=== PATIENT | female | born 1985 | race Caucasian/White ===

== ENCOUNTER → 2018-12-26 | Outpatient (CLI) | payer OTHER ==
[~2018-12-26] MED LIST: ADV100INH INH; BUSP5TA PO; FLON0.054; VITA500C3 PO; ZYRT10CA PO
[2018-12-26 14:17] LABS: HEPATITIS C VIRUS ABY INDEX < 0.0 INDEX (<0.8); HIV 1&2 SCREEN CENTAUR NEGATIVE (NEGATIVE)
[2018-12-26 14:43] LABS: CHLAMYDIA DNA AMPLIFICATION NEGATIVE (NEGATIVE); GC DNA AMPLIFICATION NEGATIVE (NEGATIVE)
== END ==
LOC: M SMT 09:27
PROVIDERS: ATTEND Obstetrics & Gynecology
DX: Z34.83 Encounter for supervision of other normal pregnancy, third trimester (principal); Z3A.00 Weeks of gestation of pregnancy not specified

== ENCOUNTER 2019-01-28 07:22 | Inpatient (IN) | payer OTHER ==
[2019-01-28] VITALS (7 sets, daily range): BP systolic 114–124; BP diastolic 64–74
[~2019-01-28] VITALS: Ht 149.9 cm; Wt 101.9 kg
[2019-01-28] MEDS ORDERED: MAPA500T2 PO (07:34)
[2019-01-28] MEDS ORDERED: PRENTAB9 PO (07:34)
[2019-01-28 08:49] LABS: HEMATOCRIT 37.6 % (36.0-47.0); HEMOGLOBIN 12.5 g/dl (12.0-15.5); MEAN CORPUSCULAR HEMOGLOBIN 26.8 pg (27.0-33.0); MEAN CORPUSCULAR HGB CONC 33.2 g/dl (32.0-36.5); MEAN CORPUSCULAR VOLUME 80.5 fl (80.0-96.0); PLATELET COUNT, AUTOMATED 205 10^3/uL (150-450); RED BLOOD COUNT 4.67 10^6/uL (4.00-5.40); WHITE BLOOD COUNT 9.8 10^3/uL (4.0-10.0)
[2019-01-28] MEDS: PRENATAL VITAMINS CHEWABLE TABLET PO SCH (09:00)
[2019-01-28] MEDS ORDERED: miSOPROStol 50 MCG 1/2 TAB (S0191) PO SCH (09:00)
[2019-01-28] MEDS ORDERED: LACTATED RINGER'S 1000 ML IV STA (10:30)
[2019-01-28] MEDS ORDERED: BICITRA 30ML SOLN UDC PO ONE (10:30)
[2019-01-28] MEDS ORDERED: OXYTOCIN INJ 10 UNITS/ML VIAL (J2590) As Ordered ONE (10:46)
[2019-01-28] MEDS ORDERED: BUPIVACAINE/DEXTROSE 0.75% 2 ML AMP As Ordered ONE (10:46)
[2019-01-28] MEDS ORDERED: ONDANSETRON 4MG/2ML VIAL (J2405) As Ordered ONE (10:47)
[2019-01-28] MEDS ORDERED: dexameTHASONE 4 MG/ML 1ML VIAL (J1100) As Ordered ONE (10:47)
[2019-01-28] MEDS ORDERED: NALOXONE INJ 0.4 MG/1 ML VIAL (J2310) As Ordered ONE (10:51)
[2019-01-28] MEDS ORDERED: MORPHINE PRES-FREE INJ 10 MG/10 ML VIAL (J2274) As Ordered ONE (10:51)
[2019-01-28] MEDS ORDERED: ONDANSETRON 4MG/2ML VIAL (J2405) IV PRN ×3 (11:15→12:45)
[2019-01-28] MEDS ORDERED: METOCLOPRAMIDE INJ 10MG/2ML VIAL (J2765) IV PRN ×2 (11:15→12:45)
[2019-01-28] MEDS ORDERED: diphenhydrAMINE INJ 50MG/ML VIAL (J1200) IV PRN (11:15)
[2019-01-28] MEDS ORDERED: NALOXONE INJ 0.4 MG/1 ML VIAL (J2310) IV PRN ×2 (11:15)
[2019-01-28] MEDS ORDERED: NALBUPHINE HCL 10 MG/ML AMP (J2300) IV PRN (11:15)
--- NOTE | 2019-01-28 11:26 | HPE ---
DATE OF ADMISSION: 01/28/2019 REASON FOR ADMISSION: Induction of labor. HISTORY OF PRESENT ILLNESS: Ms. Martinez is a 33-year-old 1 who presents at 40 weeks 2 days estimated gestational age for induction of labor. Her course has been unremarkable. She initiated care at the first trimester, transferred into our practice at 35 weeks. PAST MEDICAL HISTORY: History of asthma. Also, with past medical history of depression, anxiety. PAST SURGICAL HISTORY: None. PAST OBSTETRICAL HISTORY: She is a 1. MEDICATIONS: Includes vitamins, Claritin, and Advair. ALLERGIES: She has no known drug allergies. SOCIAL HISTORY: Denies any alcohol, tobacco or drug use during . PHYSICAL EXAMINATION: Vital signs: Stable. She has a category 1 heart tracing. General appearance: Well appearing, no acute distress. Lungs: Clear to auscultation bilaterally. Cardiovascular: Heart regular rate and rhythm. Abdomen: Gravid, nontender. Cervical exam: She is 1 cm dilated, 25% effaced, -3 station. LABORATORY: Her blood type is A+, antibody screen is negative. Rubella is immune. Hepatitis surface antigen is negative, HIV is negative, hepatitis C is nonreactive. Chlamydia and gonorrhea screens are negative. She had a normal one-hour Glucola. She is GBS negative. ASSESSMENT: 1. Ms. Martinez is a 33-year-old 1 at 40 weeks 2 days estimated gestational age by last menstrual period, confirmed by first trimester ultrasound, here for induction of labor. 2. Reassuring status. PLAN: 1. Admit to labor and delivery, CBC, RPR, type and screen. 2. I have discussed induction of labor to include medication as well as procedures performed in labor and delivery. She has also been verbally consented for emergency surgery, blood products, and anesthesia and desires to proceed. 3. Will initiate her induction of labor with 50 mcg of oral misoprostil. MTDD
[2019-01-28 12:04] LABS: CORD GAS ABE V 0.5; CORD GAS HCO3 V 26.9 MEQ/L; CORD GAS O2 SAT V 33.1 %; CORD GAS PCO2 V 49.9 mmHg; CORD GAS PH V 7.35 UNITS; CORD GAS PO2 V 16.4 mmHg; CORD GAS SBC V 23.2 MEQ/L; CORD GAS TCO2 V 28.5 MEQ/L
[2019-01-28 12:06] LABS: CORD GAS ABE A -1.1; CORD GAS HCO3 A 26.6 MEQ/L; CORD GAS O2 SAT A 29.4 %; CORD GAS PCO2 A 56.2 mmHg; CORD GAS PH A 7.293 UNITS; CORD GAS PO2 A 15.9 mmHg; CORD GAS SBC A 21.8 MEQ/L; CORD GAS TCO2 A 28.3 MEQ/L
[2019-01-28] MEDS ORDERED: MOM 30ML SUSPENSION UDC PO PRN (12:30)
[2019-01-28] MEDS ORDERED: PERCOCET 5MG/325MG TAB PO PRN (12:30)
[2019-01-28] MEDS ORDERED: OXYTOCIN 30 UNITS IN 0.9% NaCl 500ML IV BAG (J2590) As Ordered ONE (12:30)
[2019-01-28] MEDS ORDERED: MEASLES,MUMPS,RUBELLA VACCINE INJ (MMR-II) (90707) SC SCH (12:30)
[2019-01-28] MEDS ORDERED: RHOGAM 300 MCG (1500 IU) INJ (J2790) IM SCH (12:30)
[2019-01-28] MEDS ORDERED: LR 1,000 ML IV SCH (12:45)
[2019-01-28] MEDS ORDERED: fentaNYL 100 MCG/2 ML INJECTION (J3010) IV PRN (12:45)
[2019-01-28] MEDS ORDERED: OXYTOCIN DRIP 30 UNITS in APPROPRIATE DILUENT 1 EA IV SCH (13:00)
[2019-01-28] MEDS ORDERED: KETOROLAC 30 MG/ML VIAL (J1885) As Ordered ONE (13:20)
[2019-01-28] MEDS: KETOROLAC 30 MG/ML VIAL (J1885) IV SCH ×2 (13:22→20:25)
[2019-01-28] MEDS ORDERED: NALBUPHINE HCL 10 MG/ML AMP (J2300) As Ordered ONE (13:43)
[2019-01-28] MEDS: LR 1,000 ML IV SCH (17:52)
[2019-01-28] MEDS: DOCUSATE SODIUM 100 MG CAP PO SCH (20:25)
[2019-01-29] VITALS (7 sets, daily range): BP systolic 108–126; BP diastolic 54–74
[2019-01-29] MEDS: KETOROLAC 30 MG/ML VIAL (J1885) IV SCH (01:27)
[2019-01-29] MEDS: LR 1,000 ML IV SCH ×2 (01:28→05:00)
[2019-01-29 07:54] LABS: HEMATOCRIT 36.2 % (36.0-47.0); MEAN CORPUSCULAR HEMOGLOBIN 26.9 pg (27.0-33.0); MEAN CORPUSCULAR HGB CONC 33.1 g/dl (32.0-36.5); MEAN CORPUSCULAR VOLUME 81.2 fl (80.0-96.0); PLATELET COUNT, AUTOMATED 198 10^3/uL (150-450); RED BLOOD COUNT 4.46 10^6/uL (4.00-5.40); WHITE BLOOD COUNT 12.9 10^3/uL (4.0-10.0)
[2019-01-29] MEDS: PRENATAL VITAMINS CHEWABLE TABLET PO SCH (08:11)
[2019-01-29] MEDS: DOCUSATE SODIUM 100 MG CAP PO SCH ×2 (08:12→20:18)
--- NOTE | 2019-01-29 08:34 | RO ---
DATE OF OPERATION: 01/28/2019 PREPROCEDURE DIAGNOSIS: Inability to augment labor, remote from delivery. POSTPROCEDURE DIAGNOSIS: Inability to augment labor, remote from delivery. PROCEDURE: Primary section. SURGEON: Nataly Meehan MD ELECTROTYPE MOLDER: Maricruz Keen MD ANESTHESIA: Spinal. ESTIMATED BLOOD LOSS: Is 500 mL. INTRAVENOUS FLUIDS: 1300 mL of lactated Ringer's solution. URINE OUTPUT: Was 200 mL. PREOPERATIVE ANTIBIOTICS: 2 grams of Ancef. SPECIMENS: Cord gases which were 7.29, 7.35, base excesses of minus 1.1 and minus 0.5, placenta. OPERATIVE FINDINGS: Liveborn male infant, scores 8 and 9, weight was 3200 grams, 7 pounds 1 ounce. INDICATION FOR OPERATION: Ms. Martinez is a 33 year old 1 who presented for induction of labor at 40 weeks 3 days estimated gestational age. Prior to initiating her induction of labor, she had a prolonged bradycardia event. heart rate minh in 50s for approximately 4 minutes, slowly returned to patient's baseline at which time it remained as a category 2. Initial plan after heart rate recovered was to offer contraction stress test. Due to the category 2 tracing, this was delayed with inability to perform induction secondary to persistent category 2 tracing and in light of this prolonged deceleration, I decided to procedure with a section secondary to inability to augment labor with a persistent category 2 heart tracing. DESCRIPTION OF OPERATION: After informed consent was obtained and written consent reviewed, the patient was brought to the operating room where spinal anesthesia was placed. She was then placed in the supine position with a left lateral tilt. Kaur catheter was placed and set to gravity. She was then prepped and draped in a normal sterile fashion. A time-out in operating room was then performed identifying the patient, procedure to be performed, as well as drug allergies. Anesthesia was tested and deemed to be adequate. A Pfannenstiel skin incision was then made and this was carried down to underlying rectus fascia. Fascia was scored and this was extended bilaterally. The fascia was then dissected off the underlying rectus muscles both superiorly and inferiorly. Rectus muscles were then in midline. The peritoneum was then entered. The vesicouterine peritoneum was then identified, it was tented and excised to create a bladder flap. The bladder blade was then placed to retract back the bladder. Curvilinear incision was then made in a lower uterine segment. Amniotomy was then performed productive of meconium-stained amniotic fluid. The head was then brought to the level of the incision atraumatically and was delivered along with shoulders and corpus. Cord was clamped times two and was cut. was taken over to the warmer with good cry. Cord gases were obtained. Placenta was then delivered grossly intact. The uterus was then exteriorized, cleared of all clots and debris. The uterine incision was then closed in two layers using #0 Vicryl, first in a running locking fashion followed by second layer for imbrication in a running nonlocking fashion. The abdomen was then suctioned. The uterus was returned to the patient abdomen and was reinspected and noted be hemostatic. The anterior peritoneum was then reapproximated with #3-0 Vicryl. Rectus muscles were reapproximated using #3-0 Vicryl. The fascia was then closed using #0 Vicryl in a running nonlocking fashion. The subcutaneous tissue was then irrigated and suctioned. The subcutaneous tissue was then reapproximated with #3-0 Vicryl. Several subdermal stitches placed with #3-0 Vicryl, and the skin was closed with #4-0 Monocryl in subcuticular fashion. The incision was then cleaned and dried and was dressed. Patient was then taken to recovery in stable condition. Counts were correct. Dr. Keen, my registered nurse surgical services, played an essential role during surgery. She assisted with tissue identification, retraction, delivery of the , as well as wound closure. JENNY
[2019-01-29] MEDS: IBUPROFEN 800 MG TAB PO SCH ×2 (10:55→18:30)
--- NOTE | 2019-01-29 10:59 | NUR ---
POD#1 S: Doing well w/o complaints. Pain well controlled, + voids, +ambulation, + breast feeding. O: vss, AF gen: well appearing abd: soft, nttp, ff@U-2 incision: dressed ext: neg calf tenderness A/P: POD#1 s/p 1LTCS -recovering in stable condition. -cont routine postop/ care -d/c home tomorrow Nataly Meehan MD
[2019-01-29] MEDS: PERCOCET 5MG/325MG TAB PO PRN (13:06)
[2019-01-29] MEDS: ADVAIR INH SCH (17:22)
[2019-01-29] MEDS ORDERED: PERCOCET PO (17:40)
[2019-01-29] MEDS ORDERED: IBUP1TAB7 PO (17:42)
[2019-01-30] MEDS: IBUPROFEN 800 MG TAB PO SCH ×2 (02:02→10:17)
[2019-01-30 02:41] VITALS: BP 116/55
[2019-01-30] MEDS: ADVAIR INH SCH (06:01)
[2019-01-30 06:09] VITALS: BP 122/72
--- NOTE | 2019-01-30 08:25 | DS.PDOC ---
Discharge Summary General Date of Admission Jan 28, 2019 at 07:22 Date of Discharge 01/30/2019 Attending Physician: ROBYN APONTE MD. Discharge Summary PROCEDURES PERFORMED DURING STAY: Primary section. ADMITTING DIAGNOSES: 1. IUP at 40.3 weeks gestation 2. elective IOL. DISCHARGE DIAGNOSES: 1. Day 2 postoperative. COMPLICATIONS/CHIEF COMPLAINT: Induction. HISTORY OF PRESENT ILLNESS: Patient is a at 40.3 weeks gestation who presented for IOL. Prior to start of induction patient had a prolonged bradycard ia and a persistent Category II FHR tracing. Due to this the decision was made with the patient to proceed to a section due to inability to augment and being remote from delivery. DISCHARGE MEDICATIONS: Please see below. ALLERGIES: Please see below. PHYSICAL EXAMINATION ON DISCHARGE: VITAL SIGNS: Please see below. RESPIRATORY EXAMINATION: regular rate and rhythm with no use of accessory muscles ABDOMINAL EXAMINATION: Fundus firm at 2 below her umbilicus EXTREMITIES: generalized edema SKIN: low transverse incision dressing is intact NEUROLOGICAL EXAMINATION: A+O +ambulation and + void LABORATORY DATA: Please see below. ACTIVITY: As tolerated. DIET: regular DISCHARGE INSTRUCTIONS: 1. Patient discharged to home. She is to follow-up in 2 weeks for an incision check and 6-8 weeks for . 2. Education done on mastitis, DVT, pulmonary embolism, depression and psychosis, hemorrhage, signs of infection, pain management, and incision care. Education done on removing dressing on 5 days postoperative. DISCHARGE CONDITION: Stable. Vital Signs/I&Os Vital Signs Date Time Temp Pulse Resp B/P (MAP) Pulse Ox O2 Delivery O2 Flow Rate FiO2 01/30/19 06:09 97.9 88 18 122/72 (89) 01/29/19 18:00 98 I&O- Last 24 Hours up to 6 AM 01/30/19 06:00 Intake Total 480 ml Output Total 1000 ml Balance -520 ml Discharge Medications Scheduled Multivitamins/ ( 27-0.8 mg) 1 Tab Tab, 1 TAB PO DAILY, (Reported) Salmeterol/Fluticasone (Advair Diskus 100-50 Mcg/Dose) 28 Puff/Inhaler Aerp, 1 PUFF INH BID for asthma, (Reported) Scheduled PRN Cetirizine HCl (Zyrtec Allergy) 10 Mg Cap, 10 MG PO DAILYPRN PRN for allergy, (Reported) Ibuprofen (Ibuprofen) 800 Mg Tab, 800 MG PO Q8HP PRN for PAIN Oxycodone/Acetaminophen (Percocet 5MG/325MG Tablet) 1 Tab Tab, 1-2 TAB PO Q6HP PRN for PAIN Miscellaneous Medications Acetaminophen (Mapap) 500 Mg Tab, 500 MG PO, (Reported) Allergies Coded Allergies: No Known Allergies (Unverified , 03/26/15) FELICIA BERNARD CNM Jan 30, 2019 08:25
[2019-01-30] MEDS: PRENATAL VITAMINS CHEWABLE TABLET PO SCH (08:28)
[2019-01-30] MEDS: DOCUSATE SODIUM 100 MG CAP PO SCH (08:28)
[2019-01-30] MEDS: PERCOCET 5MG/325MG TAB PO PRN (08:29)
== END 2019-01-30 15:40 | disposition home or self-care (01) | DRG 540 ==
LOC: M LDI 07:22 → M OBS 13:56
PROVIDERS: ADMIT Obstetrics & Gynecology; ATTEND Obstetrics & Gynecology
PROC: 10D00Z1 Extraction of Products of Conception, Low, Open Approach (ICD-10-PCS; principal; 2019-01-28 11:04)
DX: O76 Abnormality in fetal heart rate and rhythm complicating labor and delivery (principal); J45.909 Unspecified asthma, uncomplicated; O48.0 Post-term pregnancy; Z37.0 Single live birth; Z3A.40 40 weeks gestation of pregnancy; O99.52 Diseases of the respiratory system complicating childbirth

== ENCOUNTER 2019-03-04 14:05 | Emergency (ER) | payer OTHER ==
[~2019-03-04] VITALS: Ht 149.9 cm; Wt 94.3 kg
[2019-03-04 14:05] VITALS: BP 120/69
[~2019-03-04 14:05] MED LIST changes: +IBUP1TAB7 PO; +MAPA500T2 PO; +PERCOCET PO; +PRENTAB9 PO
[2019-03-04] MEDS ORDERED: DICL500C (14:12)
[2019-03-04] MEDS ORDERED: ADV250INH (14:12)
[2019-03-04] MEDS ORDERED: BACT800T5 PO (15:26)
== END 2019-03-04 15:37 | disposition home or self-care (01) ==
LOC: M ED 14:05
DX: N61.0 Mastitis without abscess (principal); Z91.14 Patient's other noncompliance with medication regimen; J45.909 Unspecified asthma, uncomplicated; Z72.0 Tobacco use; Z79.899 Other long term (current) drug therapy

== ENCOUNTER 2019-05-24 14:56 | Emergency (ER) | payer OTHER ==
[~2019-05-24] VITALS: Ht 149.9 cm; Wt 87.3 kg
[~2019-05-24 14:56] MED LIST changes: +ADV250INH; +BACT800T5 PO; +DICL500C
[2019-05-24] MEDS ORDERED: ADV250INH INH (17:02)
[2019-05-24] MEDS ORDERED: VENTAER INH (17:02)
[2019-05-24 17:36] VITALS: BP 131/70
== END 2019-05-24 17:37 | disposition home or self-care (01) ==
LOC: M ED 14:56
DX: Z76.0 Encounter for issue of repeat prescription (principal); J45.909 Unspecified asthma, uncomplicated; Z79.899 Other long term (current) drug therapy

== ENCOUNTER 2019-06-26 18:47 | Emergency (ER) | payer OTHER ==
[~2019-06-26] VITALS: Ht 149.9 cm; Wt 81.8 kg
[2019-06-26 18:47] VITALS: BP 130/85
[~2019-06-26 18:47] MED LIST changes: +ADV250INH INH; +VENTAER INH
== END 2019-06-26 20:58 | disposition left against medical advice (07) ==
LOC: M ED 18:47
DX: Z53.21 Procedure and treatment not carried out due to patient leaving prior to being seen by health care provider (principal)

== ENCOUNTER 2019-07-19 20:00 | Emergency (ER) | payer OTHER ==
[~2019-07-19] VITALS: Ht 149.9 cm; Wt 81.8 kg
[2019-07-19 20:00] VITALS: BP 166/87
[2019-07-19] MEDS ORDERED: hydrOXYzine 25 MG TAB PO STA (22:18)
[2019-07-19] MEDS ORDERED: PRED20TA PO (22:22)
[2019-07-19] MEDS ORDERED: HYDR-3363 PO (22:22)
[2019-07-19] MEDS ORDERED: predniSONE 20 MG TAB PO ONE (22:30)
== END 2019-07-19 22:51 | disposition home or self-care (01) ==
LOC: M ED 20:00
DX: L23.9 Allergic contact dermatitis, unspecified cause (principal); L40.9 Psoriasis, unspecified; J45.909 Unspecified asthma, uncomplicated; Z79.899 Other long term (current) drug therapy

== ENCOUNTER 2019-10-09 13:15 | Emergency (ER) | payer OTHER ==
[~2019-10-09] VITALS: Ht 149.9 cm; Wt 90.9 kg
[~2019-10-09 13:15] MED LIST changes: +HYDR-3363 PO; +PRED20TA PO
[2019-10-09] MEDS ORDERED: FLUT1BLS5 (13:19)
[2019-10-09] MEDS ORDERED: IBUP-1022 PO (14:19)
[2019-10-09] MEDS ORDERED: MUCI600T31 PO (14:19)
[2019-10-09 15:16] LABS: INFLUENZA A AMPLIFICATION NEGATIVE (NEGATIVE); INFLUENZA B AMPLIFICATION NEGATIVE (NEGATIVE)
[2019-10-09] MEDS ORDERED: IPRATROPIUM 0.5MG/ALBUTEROL 2.5MG INH SOL UD 3ML (DUONEB)(J7620) NEB ONE (16:00)
--- NOTE | 2019-10-09 16:30 | REP ---
Two-view chest: 10/09/2019. Indication: Wheezing. Comparison: 02/10/2014. Findings: There is no focal airspace consolidation, pleural effusion or pneumothorax. The cardiac silhouette is normal. Impression: No acute cardiopulmonary process. Electronically Signed by Gautam Roach DO 10/09/2019 04:21 P
[2019-10-09] MEDS ORDERED: ALBU83IN NEB (17:05)
[2019-10-09 17:11] VITALS: BP 118/68
== END 2019-10-09 17:11 | disposition home or self-care (01) ==
LOC: M ED 13:15
DX: J06.9 Acute upper respiratory infection, unspecified (principal); J45.901 Unspecified asthma with (acute) exacerbation; F33.9 Major depressive disorder, recurrent, unspecified; F41.9 Anxiety disorder, unspecified

== ENCOUNTER → 2020-11-26 | Outpatient (REF) | payer OTHER ==
[~2020-11-26] MED LIST changes: +ALBU83IN NEB; +FLUT1BLS5; +IBUP-1022 PO; +MUCI600T31 PO
[2020-11-27 14:46] LABS: CHLAMYDIA DNA AMPLIFICATION NEGATIVE (NEGATIVE); GC DNA AMPLIFICATION NEGATIVE (NEGATIVE)
== END ==
LOC: M SFHCLERA 14:50
PROVIDERS: ATTEND Nurse Practitioner Family
DX: R30.0 Dysuria (principal)

== ENCOUNTER → 2021-01-13 | Outpatient (REF) | payer OTHER | LOC: M PLALAB 10:17 | PROVIDERS: ATTEND Obstetrics & Gynecology | DX: Z12.4 Encounter for screening for malignant neoplasm of cervix (principal) ==

== ENCOUNTER 2021-02-21 15:00 | Emergency (ER) | payer OTHER ==
[~2021-02-21] VITALS: Ht 149.9 cm; Wt 89.3 kg
[2021-02-21] MEDS ORDERED: FLUORESCEIN OPHTH 1 MG STRIP OS ONE (16:20)
[2021-02-21 16:32] VITALS: BP 133/78
[2021-02-21] MEDS ORDERED: VALA1TAB5 PO (16:42)
== END 2021-02-21 17:01 | disposition home or self-care (01) ==
LOC: M ED 15:00
DX: R21 Rash and other nonspecific skin eruption (principal); H57.12 Ocular pain, left eye

== ENCOUNTER → 2021-05-12 | Outpatient (REF) | payer OTHER ==
[~2021-05-12] MED LIST changes: +VALA1TAB5 PO
== END ==
LOC: M SFHCLERA 15:52
PROVIDERS: ATTEND Nurse Practitioner Family
DX: J06.9 Acute upper respiratory infection, unspecified (principal)

== ENCOUNTER → 2021-10-16 | Outpatient (REF) | payer OTHER | LOC: M SFHCPLAZ 09:51 | PROVIDERS: ATTEND Physician Assistant | DX: R07.0 Pain in throat (principal) ==

== ENCOUNTER → 2022-10-29 | Outpatient (REF) | payer OTHER ==
[~2022-10-29] MED LIST changes: +ALBU2.5V10 NEB; -ALBU83IN NEB
[2022-10-29 17:49] LABS: BASO # 0.1 10^3/uL (0.0-0.2); BASO % 0.6 % (0.0-1.0); EOS # 0.5 10^3/uL (0.0-0.5); EOS % 6.2 % (0.0-3.0); HEMATOCRIT 42.6 % (36.0-47.0); HEMOGLOBIN 13.7 g/dl (12.0-15.5); LYMPH # 3.2 10^3/uL (1.5-5.0); LYMPH % 39.8 % (24.0-44.0); MEAN CORPUSCULAR HEMOGLOBIN 26.2 pg (27.0-33.0); MEAN CORPUSCULAR HGB CONC 32.2 g/dl (32.0-36.5); MEAN CORPUSCULAR VOLUME 81.6 fl (80.0-96.0); MONO # 0.4 10^3/uL (0.0-0.8); MONO % 4.8 % (2.0-8.0); NEUTROPHILS # 3.8 10^3/uL (1.5-8.5); NEUTROPHILS % 48.1 % (36.0-66.0); PLATELET COUNT, AUTOMATED 275 10^3/uL (150-450); RED BLOOD COUNT 5.22 10^6/uL (4.00-5.40); WHITE BLOOD COUNT 7.9 10^3/uL (4.0-10.0)
[2022-10-29 18:01] LABS: ALBUMIN 4.2 G/DL (3.2-5.2); ALKALINE PHOSPHATASE 84 U/L (46-116); ALT/SGPT 24 U/L (7.0-40); AST/SGOT 19 U/L (<34); BILIRUBIN,TOTAL 0.6 MG/DL (0.3-1.2); BLOOD UREA NITROGEN 10 MG/DL (9-23); CALCIUM LEVEL 9.4 MG/DL (8.5-10.1); CARBON DIOXIDE LEVEL 27 MMOL/L (20-31); CHLORIDE LEVEL 102 MMOL/L (98-107); CREATININE FOR GFR 0.55 MG/DL (0.55-1.30); GLOMERULAR FILTRATION RATE > 60.0 (>60); GLUCOSE, FASTING 120 MG/DL (60-100); POTASSIUM SERUM 3.6 MMOL/L (3.5-5.1); SODIUM LEVEL 138 MMOL/L (136-145); TOTAL PROTEIN 7.1 G/DL (5.7-8.2)
[2022-10-29 18:05] LABS: THYROID STIMULATING HORMONE 0.869 uIU/ML (0.55-4.78)
[2022-10-29 18:06] LABS: FREE T4 1.02 NG/DL (0.89-1.76)
== END ==
LOC: M SFHCADAM 15:13
PROVIDERS: ATTEND Physician Assistant Medical
DX: F33.2 Major depressive disorder, recurrent severe without psychotic features (principal)

== ENCOUNTER → 2023-03-10 | Outpatient (REF) | payer OTHER ==
[2023-03-10 13:54] LABS: APPEARANCE, URINE HAZY (CLEAR); BACTERIA, URINE AUTO 1+ (NEGATIVE); BILIRUBIN, URINE AUTO NEGATIVE (NEGATIVE); BLOOD, URINE BLOOD 2+ (NEGATIVE); COLOR, URINE YELLOW (YELLOW); GLUCOSE, URINE (UA) AUTO NEGATIVE (NEGATIVE); KETONE, URINE AUTO NEGATIVE (NEGATIVE); LEUKOCYTE ESTERASE, URINE AUTO 3+ (NEGATIVE); NITRITE, URINE AUTO NEGATIVE (NEGATIVE); PROTEIN, URINE AUTO NEGATIVE (NEGATIVE); RBC, URINE AUTO 6 /HPF (0-3); SQUAMOUS EPITHELIAL CELL UR AU 5 /HPF (0-6); UROBILINOGEN, URINE AUTO 0.2 mg/dL (0.0-2.0); WBC, URINE AUTO 31 /HPF (0-3)
[2023-03-10 14:03] LABS: HEMOGLOBIN A1c 5.2 % (4.0-6.0)
[2023-03-10 14:30] LABS: THYROID STIMULATING HORMONE 0.944 uIU/ML (0.55-4.78)
[2023-03-10 14:37] LABS: ALBUMIN 3.8 G/DL (3.2-5.2); ALKALINE PHOSPHATASE 80 U/L (46-116); ALT/SGPT 20 U/L (7.0-40); AST/SGOT 15 U/L (<34); BILIRUBIN,TOTAL 0.5 MG/DL (0.3-1.2); BLOOD UREA NITROGEN 9 MG/DL (9-23); CALCIUM LEVEL 8.9 MG/DL (8.5-10.1); CARBON DIOXIDE LEVEL 24 MMOL/L (20-31); CHLORIDE LEVEL 103 MMOL/L (98-107); CHOLESTEROL LEVEL 178 MG/DL (<200); CHOLESTEROL RISK RATIO 2.85 (<5); CREATININE FOR GFR 0.52 MG/DL (0.55-1.30); GLOMERULAR FILTRATION RATE > 60.0 (>60); GLUCOSE, FASTING 84 MG/DL (60-100); HDL CHOLESTEROL 62.4 MG/DL (>40); NON-HDL-C 115.6 MG/DL; POTASSIUM SERUM 3.7 MMOL/L (3.5-5.1); SODIUM LEVEL 139 MMOL/L (136-145); TOTAL PROTEIN 6.7 G/DL (5.7-8.2); TRIGLYCERIDES LEVEL 183 MG/DL (<150)
[2023-03-10 16:02] LABS: GC DNA AMPLIFICATION NEGATIVE (NEGATIVE)
== END ==
LOC: M SFHCADAM 10:43
PROVIDERS: ATTEND Physician Assistant Medical
DX: F33.0 Major depressive disorder, recurrent, mild (principal); R30.0 Dysuria; E66.01 Morbid (severe) obesity due to excess calories; N89.8 Other specified noninflammatory disorders of vagina

== ENCOUNTER → 2023-09-07 | Outpatient (REF) | payer OTHER ==
[2023-09-07 14:47] LABS: HIV 1&2 SCREEN NEGATIVE (NEGATIVE)
[2023-09-07 15:38] LABS: GC DNA AMPLIFICATION NEGATIVE (NEGATIVE)
== END ==
LOC: M SFHCADAM 10:20
PROVIDERS: ATTEND Physician Assistant Medical
DX: Z11.3 Encounter for screening for infections with a predominantly sexual mode of transmission (principal)

== ENCOUNTER → 2024-02-14 | Outpatient (REF) | LOC: M EMP 07:52 | PROVIDERS: ATTEND Family Medicine | DX: Z20.828 Contact with and (suspected) exposure to other viral communicable diseases (principal) ==

== ENCOUNTER 2024-02-17 10:59 | Emergency (ER) | payer OTHER ==
[~2024-02-17] VITALS: Ht 152.4 cm; Wt 103.3 kg
[2024-02-17] MEDS ORDERED: ACET-861 PO (11:09)
[2024-02-17] MEDS ORDERED: LEXA1TAB2 PO (11:09)
[2024-02-17] MEDS ORDERED: ACET1TAB37 PO (11:09)
[2024-02-17] MEDS ORDERED: FAMO10TA50 PO (11:09)
[2024-02-17] MEDS ORDERED: COLA100C5 PO (14:08)
[2024-02-17] MEDS ORDERED: ANUS2.5C2 TOP (14:08)
[2024-02-17 14:16] VITALS: BP 128/70; TEMP 97.6; O2SAT 99
== END 2024-02-17 14:29 | disposition home or self-care (01) ==
LOC: M ED 10:59
DX: K59.00 Constipation, unspecified (principal); K64.8 Other hemorrhoids; J45.909 Unspecified asthma, uncomplicated; Z79.1 Long term (current) use of non-steroidal anti-inflammatories (NSAID); Z79.899 Other long term (current) drug therapy

== ENCOUNTER 2025-09-16 14:01 | Emergency (ER) | payer BC, OTHER, SELFPAY ==
[~2025-09-16] VITALS: Ht 149.9 cm; Wt 100.7 kg
[~2025-09-16 14:01] MED LIST changes: +ACET-1592 PO; +ACET-861 PO; -ADV100INH INH; -ADV250INH; -ADV250INH INH; +ADVA1AER8 INH; +ADVA1AER9; +ADVA1AER9 INH; +ANUS2.5C2 TOP; +COLA100C5 PO; +FAMO10TA50 PO; -IBUP-1022 PO; +IBUP600T42 PO; +LEXA1TAB2 PO
[2025-09-16] MEDS ORDERED: PRED20TA PO (16:17)
[2025-09-16 16:22] VITALS: BP 141/97; TEMP 97.8; O2SAT 97
== END 2025-09-16 16:25 | disposition home or self-care (01) ==
LOC: M ED 14:01
DX: R05.9 Cough, unspecified (principal); J45.909 Unspecified asthma, uncomplicated; Z79.1 Long term (current) use of non-steroidal anti-inflammatories (NSAID); Z79.52 Long term (current) use of systemic steroids; Z79.899 Other long term (current) drug therapy